=== PATIENT | male | born 1975 | race Caucasian/White ===

== ENCOUNTER 2018-07-16 13:37 | Emergency (ER) | END 2018-07-16 16:35 | disposition home or self-care (01) ==

== ENCOUNTER 2019-03-27 19:58 | Observation (INO) | payer BC ==
[~2019-03-27] VITALS: Ht 167.6 cm; Wt 84.0 kg
[~2019-03-27 19:58] MED LIST: ACET500C5 PO; CEPH-443 PO; IBUP-1542 PO; SULF1TAB31 PO
[2019-03-27] MEDS ORDERED: SODIUM CHLORIDE 0.9% 1L BAG IV* STA (21:38)
[2019-03-27] MEDS ORDERED: ENOXAPARIN 100 MG/ML SYG SC SCH (22:30)
[2019-03-27] MEDS ORDERED: ENOXAPARIN 80 MG/0.8 ML SYG SC SCH (22:35)
[2019-03-27] MEDS ORDERED: ACETAMINOPHEN 325 MG TAB PO PRN (23:30)
[2019-03-27] MEDS ORDERED: ONDANSETRON 4 MG INJ IV PRN (23:30)
[2019-03-28] MEDS ORDERED: DOCUSATE SODIUM 100 MG CAP PO PRN (00:30)
[2019-03-28] MEDS ORDERED: ONDANSETRON 4 MG INJ IV PRN (00:30)
[2019-03-28] MEDS ORDERED: IOHEXOL 300MG/ML 150 ML BTL ONE ×2 (00:30→10:15)
[2019-03-28] MEDS ORDERED: BISACODYL (EC) 5 MG TAB PO PRN (00:30)
[2019-03-28] MEDS ORDERED: SOD CHLORIDE 0.9% 100 ML ONE ×2 (00:30→10:15)
[2019-03-28] MEDS ORDERED: ACETAMINOPHEN 325 MG TAB PO PRN (00:30)
[2019-03-28] MEDS ORDERED: morphine 2 MG INJ IV PRN (00:30)
[2019-03-28] MEDS ORDERED: NACL 0.9% 3 ML SYG IV SCH (00:30)
[2019-03-28] MEDS ORDERED: HYDROCODONE/APAP (5/325) TAB PO PRN (00:30)
--- NOTE | 2019-03-28 00:30 | ERD ---
ER Documentation Chief Complaint Chief Complaint [id number],allie hands swelling & pain HPI Is a 43-year-old male comes in bilateral hand swelling and pain after he injected earlier today. He said he woke up with his arm her arm was swollen especially his right arm. Denies fevers chills nausea vomiting. Denies any other current complaints. Denies any chest pain. Denies any shortness of breath. ROS All systems reviewed and are negative except as per history of present illness. Medications Home Meds Discontinued Scripts Cephalexin* (Keflex*) 500 Mg Capsule, 500 MG PO QID for 7 Days, CAP Prov:LACIE CORDOBAC 07/16/18 Sulfamethoxazole/Trimethoprim* (Bactrim Ds* Tablet) 1 Each Tablet, 1 TAB PO BID for 7 Days, #14 TAB Prov:LACIE CORDOBAC 07/16/18 Acetaminophen* (Tylophen*) 500 Mg Capsule, 1 CAP PO Q6H PRN for PAIN AND OR ELEVATED TEMP, #30 CAP Prov:LACIE CORDOBA PA-C 07/16/18 Ibuprofen* (Motrin*) 600 Mg Tab, 600 MG PO Q6H PRN for PAIN AND OR ELEVATED TEMP, #30 TAB Prov:SUZANNE REAGAN 02/13/16 Allergies Allergies: Coded Allergies: No Known Allergy (Unverified , 03/27/19) PMhx/Soc Medical and Surgical Hx: pt denies Surgical Hx History of Surgery: No Anesthesia Reaction: No Hx Neurological Disorder: No Hx Respiratory Disorders: No Hx Cardiac Disorders: No Hx Psychiatric Problems: No Hx Miscellaneous Medical Probl: Yes (hep c ) Hx Alcohol Use: No Hx Substance Use: Yes (last used IV meth in am ) Hx Tobacco Use: Yes (1pack/day) Smoking Status: Current every day smoker Physical Exam Vitals Vital Signs Date Temp Pulse Resp B/P (MAP) Pulse Ox O2 O2 Flow FiO2 Time Delivery Rate 03/28/19 71 18 145/93 100 Room Air 00:25 (110) 03/27/19 99.0 85 18 131/79 96 20:09 (96) Physical Exam Const: No acute distress Head: Atraumatic Eyes: Normal Conjunctiva ENT: Normal External Ears, Nose and Mouth. Neck: Full range of motion. No meningismus. Resp: Clear to auscultation bilaterally Cardio: Regular rate and rhythm, no murmurs Abd: Soft, non tender, non distended. Normal bowel sounds Skin: No petechiae or rashes Back: No midline or flank tenderness Ext: No cyanosis, or edema Neur: Awake and alert Psych: Normal Mood and Affect Result Diagram: 03/27/19222603/27/192226 Results 24 hrs Laboratory Tests Test 03/27/19 22:27 03/27/19 22:31 03/27/19 23:27 White Blood Count 8.6 10^3/ul Red Blood Count 4.73 10^6/ul Hemoglobin 13.2 g/dl Hematocrit 41.3 % Mean Corpuscular Volume 87.3 fl Mean Corpuscular Hemoglobin 27.9 pg Mean Corpuscular 32.0 g/dl Hemoglobin Concent Red Cell Distribution Width 15.3 % Platelet Count 309 10^3/UL Mean Platelet Volume 8.7 fl Immature Granulocytes % 0.200 % Neutrophils % 66.8 % Lymphocytes % 23.3 % Monocytes % 7.6 % Eosinophils % 1.5 % Basophils % 0.6 % Nucleated Red Blood Cells % 0.0 /100WBC Immature Granulocytes # 0.020 10^3/ul Neutrophils # 5.7 10^3/ul Lymphocytes # 2.0 10^3/ul Monocytes # 0.7 10^3/ul Eosinophils # 0.1 10^3/ul Basophils # 0.1 10^3/ul Nucleated Red Blood Cells # 0.0 10^3/ul Prothrombin Time 12.3 Sec Prothrombin Time Ratio 1.0 INR International Normalized Ratio 0.90 Activated Partial Thromboplast 36.2 Sec Time Sodium Level 139 mmol/L Potassium Level 3.6 mmol/L Chloride Level 105 mmol/L Carbon Dioxide Level 26 mmol/L Anion Gap 8 Blood Urea Nitrogen 15 mg/dl Creatinine 0.94 mg/dl Est Glomerular Filtrat Rate mL/min > 60 mL/min Glucose Level 95 mg/dl Calcium Level 9.0 mg/dl Total Bilirubin 0.4 mg/dl Direct Bilirubin 0.00 mg/dl Indirect Bilirubin 0.4 mg/dl Aspartate Amino Transf (AST/SGOT) 23 IU/L Alanine 20 IU/L Aminotransferase (ALT/SGPT) Alkaline Phosphatase 97 IU/L Troponin I < 0.012 ng/ml Total Protein 7.6 g/dl Albumin 4.0 g/dl Globulin 3.60 g/dl Albumin/Globulin Ratio 1.11 POC Venous Lactate 1.1 mmol/L Lactic Acid Level 1.1 mmol/L Current Medications Medications Dose Sig/Germán Start Time Status Last (Trade) Ordered Route PRN Stop Time Admin Dose Reason Admin Sodium 2,450 ml BOLUS OVER 2 03/27/19 DC 03/27/19 Chloride HOURS STAT 21:38 23:14 (NS) IV* 03/27/19 21:40 Enoxaparin 80 mg Q12 SC 03/27/19 DC Sodium 22:30 (Lovenox) 03/27/19 22:35 Enoxaparin 80 mg Q12 SC 03/27/19 03/27/19 Sodium 22:35 22:43 (Lovenox) Ondansetron 4 mg BRIDGE ORDER 03/27/19 DC HCl (Zofran PRN IV 23:30 Inj) NAUSEA/VOMITI 03/28/19 00:14 NG 650 mg ER BRIDGE 03/27/19 DC Acetaminophen PRN PO 23:30 (Tylenol .MILD PAIN 03/28/19 00:14 Tab) 1-3 OR TEMP IV Flush 3 ml PER 03/28/19 (NS 3 ml) PROTOCOL IV 00:30 Ondansetron 4 mg Q6H PRN 03/28/19 HCl (Zofran IV 00:30 Inj) NAUSEA/VOMITI NG 650 mg Q6H PRN 03/28/19 Acetaminophen PO .PAIN 1-3 00:30 (Tylenol OR TEMP Tab) 1 tab Q6H PRN 03/28/19 Acetaminophen PO .MOD PAIN 00:30 / 4-6 Hydrocodone Bitart ([place] (5/325)) Morphine 2 mg Q4H PRN 03/28/19 Sulfate IV .SEVERE 00:30 (morphine) PAIN 7-10 Docusate 100 mg Q12H PRN 03/28/19 Sodium PO 00:30 (Colace) .CONSTIPATION Bisacodyl 5 mg DAILY PRN 03/28/19 (Dulcolax) PO 00:30 .CONSTIPATION Procedures/MDM Medical decision m[age]-year-old male with right upper extremity DVT and likely cellulitic component. At this point patient be admitted he is been given Lovenox. Dr. Lopez made aware. Departure Diagnosis: Primary Impression: DVT of upper extremity (deep vein thrombosis) Affected thrombotic vein of extremity: unspecified vein of extremity Chronicity: unspecified Laterality: unspecified laterality Qualified Codes: I82.629 - Acute embolism and thrombosis of deep veins of unspecified upper extremity Condition: Stable SUZANNE REAGAN Mar 28, 2019 00:30
[2019-03-28 02:03] VITALS: BP 132/72; PULSE 84; RESP 18
[2019-03-28 02:13] VITALS: Ht 167.6 cm; Wt 84.0 kg
[2019-03-28] MEDS ORDERED: VANCOMYCIN IV PER PHARMACY XX SCH (07:00)
--- NOTE | 2019-03-28 07:03 | HP ---
Date/Time of Note Date/Time of Note DATE: 03/28/19 TIME: 06:49 Assessment/Plan VTE Prophylaxis Pharmacological prophylaxis: LMWH Lines/Catheters IV [facility] Saline Lock Assessment/Plan Hospital Course This is a 43-year-old male being admitted to the [facility] floor for: #1 DVT of the right upper extremity: Likely secondary to history of IV drug use. Ultrasound Doppler shows: Small right upper arm cephalic vein, not compressible, consistent with thrombosis. Lovenox 1 mg/kg every 12 hours. Will consult case management to see which medication patient will qualify for as an outpatient based on insurance. #2 suspect bilateral upper extremity cellulitis: Patient does have swelling and redness noted of the bilateral hands. ED physician did report that this is likely cellulitic in nature. However given his IV drug use I did request a CT scan of the right upper extremity. Based on my examination I also felt it would be necessary to order a left upper extremity CT to evaluate for underlying abscess as well. #3 illicit drug use: Patient reports history of IV heroin use 1 week ago. He also reported marijuana and cigarettes. However the nurse reports that he admitted to methamphetamine cocaine as well. We will check a urine drug screen. PRN Ativan for withdrawal symptoms. Encourage cessation. #4 borderline obesity: We will check hemoglobin A 1C, lipid panel, TSH #5 DVT GI prophylaxis: Lovenox, no GI prophylaxis indicated Further treatment strategy will be implemented as per the clinical course Result Diagram: 03/27/19222603/27/192226 Results 24hrs Laboratory Tests Test 03/27/19 22:27 03/27/19 22:31 03/27/19 23:27 03/28/19 01:51 White Blood Count 8.6 # Red Blood Count 4.73 Hemoglobin 13.2 L Hematocrit 41.3 L Mean Corpuscular 87.3 Volume Mean Corpuscular 27.9 L Hemoglobin Mean Corpuscular 32.0 Hemoglobin Concent Red Cell 15.3 H Distribution Width Platelet Count 309 Mean Platelet Volume 8.7 # Immature 0.200 Granulocytes % Neutrophils % 66.8 Lymphocytes % 23.3 Monocytes % 7.6 Eosinophils % 1.5 Basophils % 0.6 Nucleated Red Blood 0.0 Cells % Immature 0.020 Granulocytes # Neutrophils # 5.7 Lymphocytes # 2.0 Monocytes # 0.7 Eosinophils # 0.1 Basophils # 0.1 Nucleated Red Blood 0.0 Cells # Prothrombin Time 12.3 Prothrombin Time 1.0 Ratio INR International 0.90 Normalized Ratio Activated 36.2 H Partial Thromboplast Time Sodium Level 139 Potassium Level 3.6 Chloride Level 105 Carbon Dioxide Level 26 Anion Gap 8 Blood Urea Nitrogen 15 Creatinine 0.94 Est Glomerular > 60 Filtrat Rate mL/min Glucose Level 95 Calcium Level 9.0 Total Bilirubin 0.4 Direct Bilirubin 0.00 Indirect Bilirubin 0.4 Aspartate Amino 23 Transf (AST/SGOT) Alanine 20 Aminotransferase (AL T/SGPT) Alkaline Phosphatase 97 Troponin I < 0.012 Total Protein 7.6 Albumin 4.0 Globulin 3.60 H Albumin/Globulin 1.11 Ratio POC Venous Lactate 1.1 Lactic Acid Level 1.1 1.7 HPI/ROS Admit Date/Time Admit Date/Time Mar 27, 2019 at 23:11 Hx of Present Illness Chief complaint: Bilateral arm swelling and pain This is a 43-year-old male with a past medical history of IV drug use who presented to the emergency department complaining of bilateral arm swelling and pain since yesterday. Patient is a poor historian. He states that he last injected with heroine in his left arm. He has noticed swelling over his bilateral arms mono most noticeably on his hands. He was evaluated in the emergency department and had an ultrasound performed which did show a DVT of the right upper extremity. Given his history of IV drug use a stat CT of the right upper extremity has been ordered. Upon my examination of the patient at the bedside he does appear to have swelling of the bilateral hands. He denies any fevers. There does not appear to be any induration or abscess noted on gross examination. He reports that he last used heroin 1 week ago. The patient's nurse did report that he stated that he uses heroin, cocaine and meth, he did not report this to me. Allergies: NKDA Medications: Suboxone ROS Const: As per HPI Eyes : No pain discharge or redness or change in visual acuity ENT: No pain, sore throat, congestion, congestion, dysphagia or discharge Respiratory: No shortness of breath, cough, sputum, wheezing, or pleuritic pain Cardiovascular: No chest pain, palpitation, PND, or edema GI : no change in appetite, abdominal pain, nausea, vomiting, diarrhea, con stipation, or change in the color his stool Genitourinary: No dysuria, hematuria, flank pain , discharge or CVA tenderness Musculoskeletal: No joint pain, back pain, neck pain, restricted range of motion in neck or joints Skin: Per HPI Neuro: No headache, dizziness, syncope, seizure, focal weakness Endocrine: No polyuria, polydipsia, temperature intolerance Psych: No hallucination, depression, anxiety or suicidal ideation PMH/Family/Social Past Medical History Medical History: no pertinent history Medications Current Medications Enoxaparin Sodium (Lovenox) 80 mg Q12 SC Last administered on 03/27/19at 22:43; Admin Dose 80 MG; Start 03/27/19 at 22:35 IV Flush (NS 3 ml) 3 ml PER PROTOCOL IV ; Start 03/28/19 at 00:30 Ondansetron HCl (Zofran Inj) 4 mg Q6H PRN IV NAUSEA/VOMITING; Start 03/28/19 at 00:30 Acetaminophen (Tylenol Tab) 650 mg Q6H PRN PO .PAIN 1-3 OR TEMP; Start 03/28/19 at 00:30 Acetaminophen/ Hydrocodone Bitart ([place] (5/325)) 1 tab Q6H PRN PO .MOD PAIN 4- 6; Start 03/28/19 at 00:30 Morphine Sulfate (morphine) 2 mg Q4H PRN IV .SEVERE PAIN 7-10; Start 03/28/19 at 00:30 Docusate Sodium (Colace) 100 mg Q12H PRN PO .CONSTIPATION; Start 03/28/19 at 00:30 Bisacodyl (Dulcolax) 5 mg DAILY PRN PO .CONSTIPATION; Start 03/28/19 at 00:30 Vancomycin HCl (Vanco Iv Per Pharmacy) VANCOMYCIN PER PHARMACY PER PROTOCOL XX ; Start 03/28/19 at 07:00; Status UNV Coded Allergies: No Known Allergy (Unverified , 03/27/19) Past Surgical History Past Surgical Hx: no surgical history Family History Significant Family History: no pertinent family hx Social History History of IV drug use with heroin, meth Smoking Status: Current every day smoker Drug Use: cocaine, marijuana Exam/Review of Systems Vital Signs Vitals Vital Signs Date Temp Pulse Resp B/P (MAP) Pulse Ox O2 O2 Flow FiO2 Time Delivery Rate 03/28/19 98.6 84 18 132/72 99 Room Air 02:03 (92) Intake and Output 03/27/19 03/27/19 03/28/19 1515:00 23:00 07:00 IntakeIntake Total 2450 ml BalanceBalance 2450 ml Exam Exam General: Patient is currently lying in bed in no acute distress HEENT: Atraumatic, normocephalic. The pupils are equal, round and reactive. Extraocular motor are intact Neck: Supple with full range of motion. No rigidity or meningismus Chest: Nontender Lungs: Clear to auscultation bilaterally no crackles rales or wheezing Heart: Normal S1-S2, Regular rhythm and rate. No murmur, S3, or S4 Abdomen: Soft , nontender, nondistended , bowel sounds are present. No guarding no rebound tenderness , No masses or organomegaly. No costovertebral temporal angle mass Extremities: Normal to inspection, no edema no cyanosis Skin: Bilateral dorsal surface of the hands showing erythema and redness and swelling, no areas of induration or abscess grossly appreciated. Multiple tattoos throughout the body of the bilateral upper and lower extremities Neurologic: Normal mental status, speech normal, cranial nerves II through XII are intact, motor and sensory are intact, IKE VASQUES Mar 28, 2019 06:59
[2019-03-28] MEDS ORDERED: LORAZEPAM 2 MG INJ IV PRN (07:30)
[2019-03-28] MEDS ORDERED: VANCOMYCIN HCL 1.5 GM in SOD CHLORIDE 0.9% 250 ML IVPB ONE (08:00)
[2019-03-28 08:02] VITALS: BP 145/81; PULSE 65; RESP 18
--- NOTE | 2019-03-28 15:58 | DS ---
Date/Time of Note Date/Time of Note DATE: 03/28/19 TIME: 15:55 Discharge Summary Admission/Discharge Info Admit Date/Time Mar 27, 2019 at 23:11 Discharge Date/Time Mar 28, 2019 at 13:00 Discharge Diagnosis R upper arm cephalic vein thrombosis Patient Condition: Fair Consults None Procedures None Hx of Present Illness Chief complaint: Bilateral arm swelling and pain This is a 43-year-old male with a past medical history of IV drug use who presented to the emergency department complaining of bilateral arm swelling and pain since yesterday. Patient is a poor historian. He states that he last injected with heroine in his left arm. He has noticed swelling over his bi lateral arms mono most noticeably on his hands. He was evaluated in the emergency department and had an ultrasound performed which did show a DVT of the right upper extremity. Given his history of IV drug use a stat CT of the right upper extremity has been ordered. Upon my examination of the patient at the bedside he does appear to have swelling of the bilateral hands. He denies any fevers. There does not appear to be any induration or abscess noted on gross examination. He reports that he last used heroin 1 week ago. The patient's nurse did report that he stated that he uses heroin, cocaine and meth, he did not report this to me. Allergies: NKDA Medications: Suboxone Hospital Course The patient was started on subQ enoxaparin for DVT. At the case coordinatorforest manager I arranged to have Eliquis delivered to the bedside. However before I could examine the patient he LEFT AMA to go smoke. But according to the nurse he did take the bottle of Eliquis with him. Home Meds Discontinued Scripts Cephalexin* (Keflex*) 500 Mg Capsule, 500 MG PO QID for 7 Days, CAP Prov:LACIE CORDOBA PA-C 07/16/18 Sulfamethoxazole/Trimethoprim* (Bactrim Ds* Tablet) 1 Each Tablet, 1 TAB PO BID for 7 Days, #14 TAB Prov:LACIE CORDOBA PA-C 07/16/18 Acetaminophen* (Tylophen*) 500 Mg Capsule, 1 CAP PO Q6H PRN for PAIN AND OR ELEVATED TEMP, #30 CAP Prov:LACIE CORDOBA PA-C 07/16/18 Ibuprofen* (Motrin*) 600 Mg Tab, 600 MG PO Q6H PRN for PAIN AND OR ELEVATED TEMP, #30 TAB Prov:SUZANNE REAGAN 02/13/16 Primary Care Provider [facility] Time spent on discharge: > 30 minutes Pending Labs Laboratory Tests Test 03/27/19 22:27 03/27/19 22:31 03/27/19 23:27 03/28/19 01:51 White Blood 8.6 Count 10^3/ul (4.8-10 .8) Red Blood 4.73 Count 10^6/ul (4.70-6 .10) Hemoglobin 13.2 g/dl (14.0-18.0 ) Hematocrit 41.3 % (42.0-52.0) Mean 87.3 Corpuscular fl (82.0-101.0) Volume Mean 27.9 Corpuscular pg (29.0-33.0) Hemoglobin Mean 32.0 Corpuscular g/dl (32.0-37.0 Hemoglobin Conc ) ent Red Cell 15.3 Distribution % (11.5-14.5) Width Platelet Count 309 10^3/UL (140-41 5) Mean Platelet 8.7 Volume fl (7.4-10.4) Immature 0.200 Granulocytes % % (0.001-0.429) Neutrophils % 66.8 % (39.0-77.0) Lymphocytes % 23.3 % (15.0-51.0) Monocytes % 7.6 % (0.0-11.0) Eosinophils % 1.5 % (0.0-7.0) Basophils % 0.6 % (0.0-2.0) Nucleated Red 0.0 Blood Cells % /100WBC (0.0-0. 0) Immature 0.020 Granulocytes # 10^3/ul (0.0-0. 031) Neutrophils # 5.7 10^3/ul (1.6-7. 5) Lymphocytes # 2.0 10^3/ul (0.8-2. 9) Monocytes # 0.7 10^3/ul (0.3-0. 9) Eosinophils # 0.1 10^3/ul (0.0-0. 5) Basophils # 0.1 10^3/ul (0.0-0. 1) Nucleated Red 0.0 Blood Cells # 10^3/ul (0.0-0. 0) Prothrombin 12.3 Time Sec (11.9-14.9) Prothrombin 1.0 Time Ratio INR 0.90 International Normalized Rati o Activated 36.2 Partial Thrombo Sec (23.0-35.0) plast Time Sodium Level 139 mmol/L (135-144 ) Potassium 3.6 Level mmol/L (3.5-5.1 ) Chloride Level 105 mmol/L (97-110) Carbon Dioxide 26 Level mmol/L (21-31) Anion Gap 8 (5-13) Blood Urea 15 mg/dl (7-20) Nitrogen Creatinine 0.94 mg/dl (0.61-1.2 4) Est Glomerular > 60 Filtrat mL/min (>60) Rate mL/min Glucose Level 95 mg/dl (70-220) Calcium Level 9.0 mg/dl (8.4-10.2 ) Total 0.4 Bilirubin mg/dl (0.2-1.3) Direct 0.00 Bilirubin mg/dl (0.00-0.2 0) Indirect 0.4 Bilirubin mg/dl (0-1.1) Aspartate Amino 23 IU/L (15-46) Transf (AST/SGO T) Alanine 20 IU/L (13-69) Aminotransferas e (ALT/SGPT) Alkaline 97 Phosphatase IU/L (42-121) Troponin I < 0.012 ng/ml (0.000-0. 120) Total Protein 7.6 g/dl (6.1-8.1) Albumin 4.0 g/dl (3.3-4.9) Globulin 3.60 g/dl (1.3-3.2) Albumin/Globuli 1.11 n Ratio POC Venous 1.1 Lactate mmol/L (0.5-2. 0) Lactic Acid 1.1 1.7 Level mmol/L (0.5-2. mmol/L (0.5-2. 0) 0) MINH KELLY MD Mar 28, 2019 15:58
[2019-03-28] MEDS ORDERED: VANCOMYCIN HCL 1.25 GM in SOD CHLORIDE 0.9% 250 ML IVPB SCH (20:00)
== END 2019-03-28 13:00 | disposition left against medical advice (07) ==
LOC: E/R 19:58 → MS1 23:11
PROVIDERS: ADMIT Family Medicine; ATTEND Internal Medicine
DX: I82.611 Acute embolism and thrombosis of superficial veins of right upper extremity (principal); F15.10 Other stimulant abuse, uncomplicated; F17.210 Nicotine dependence, cigarettes, uncomplicated
CPT/HCPCS: 71045; 73200; 80053; 83605; 84484; 85025; 85610; 85730; 86305; 87040; 93005; 93970; 96372; 99285; J1650; J2270; J3370; J7030; J7050; Q9967; Z7500; Z7610; G0378

== ENCOUNTER → 2019-06-02 | Emergency (ER) | payer BC ==
[~2019-06-02] VITALS: Ht 170.2 cm; Wt 80.9 kg
[~2019-06-02] MED LIST changes: -ACET500C5 PO; +LIDOCAINE 2%/EPI MPF (SDV) 20 ML VIAL INJ STA
[2019-06-02 05:43] VITALS: BP 142/92; PULSE 93; RESP 18; Ht 170.2 cm; Wt 80.9 kg
--- NOTE | 2019-06-02 10:34 | ERD ---
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 He states he has been intermittently taking his friend's amoxicillin and Keflex but has not been very consistent with this. He states the swelling and pain started to become worse yesterday. He denies any fevers. No numbness or tingling of his hand. He states he last used IV heroin 2 days ago. Tetanus is up-to-date. Of note, patient was seen here in October for DVT of the right upper extremity. He was given a 2-week course of Eliquis which she completed but is worried about another DVT and is requesting an ultrasound. Denies any shortness of breath or chest pain. ROS All systems reviewed and are negative except as per history of present illness. Medications Home Meds Active Scripts Cephalexin* (Keflex*) 500 Mg Capsule, 500 MG PO QID for 5 Days, CAP Prov:DISHIGRIKIANZEPYUR N PA-C 06/02/19 Sulfamethoxazole/Trimethoprim* (Bactrim Ds* Tablet) 1 Each Tablet, 1 TAB PO BID, #14 TAB Prov:DISHIGRIKIAN,ZEPYUR N PA-C 06/02/19 Allergies Allergies: Coded Allergies: No Known Allergy (Unverified , 03/27/19) PMhx/Soc Medical and Surgical Hx: pt denies Medical Hx, pt denies Surgical Hx History of Surgery: No Anesthesia Reaction: No Hx Neurological Disorder: No Hx Respiratory Disorders: No Hx Cardiac Disorders: No Hx Psychiatric Problems: No Hx Miscellaneous Medical Probl: Yes (Hep C, drug abuse) Hx Alcohol Use: No Hx Substance Use: Yes (heroine, 03/27/19) Hx Tobacco Use: Yes (1 pack day) Smoking Status: Current every day smoker Physical Exam Vitals Vital Signs Date Temp Pulse Resp B/P (MAP) Pulse Ox O2 O2 Flow FiO2 Time Delivery Rate 06/02/19 98.0 93 18 142/92 100 05:43 (109) Physical Exam Const: No acute distress Head: Atraumatic Eyes: Normal Conjunctiva ENT: Normal External Ears, Nose and Mouth. Neck: Full range of motion. No meningismus. Resp: Clear to auscultation bilaterally Cardio: Regular rate and rhythm, no murmurs Ext: + Approximately 5 x 6 cm tender nodule to the right upper extremity with surrounding erythema and induration. Mild fluctuance. Warm to the touch. Distally NVI. Full ROM of the shoulder, wrist and hand. Neur: Awake and alert Psych: Normal Mood and Affect Results 24 hrs Current Medications Medications Dose Sig/Germán Start Time Status Last (Trade) Ordered Route PRN Stop Time Admin Dose Reason Admin Lidocaine/ 20 ml ONCE STAT 06/02/19 DC Epinephrine INJ 06:12 (Xylocaine 06/02/19 06:15 2%/ Epi Mpf(Sdv)) Procedures/MDM PROCEDURES: Abscess Incision and Drainage was attempted by me Location: right upper extremity Anesthesia: Local 1% Lidocaine Complications: Unable to express significant amount of pus. Neurovascularly intact post procedure IMAGING: PROCEDURE: Ultrasound of the right upper extremity: CLINICAL INDICATION: Pain and swelling. Prior cephalic vein thrombus. Evaluate for DVT. TECHNIQUE: Sonographic grayscale, spectral analysis, and color-flow imaging of the right upper extremity was performed. COMPARISON: March 27, 2019. FINDINGS: INTERNAL JUGULAR THROUGH BRACHIAL VEINS: No thrombus is seen with grayscale or color-flow imaging. COMPRESSION AND PHASICITY: Present with appropriate waveforms. OTHER FINDINGS: Cephalic vein thrombus is no longer demonstrated. IMPRESSION: 1. No DVT is appreciated. MEDICAL DECISION MAKING: This is a 43-year-old IV drug user presents with an abscess to his right upper extremity. I attempted to incision and drain the abscess however there was no clear area of fluctuance and no pus was expressed. Patient was told to return in 2 days for wound recheck, he was prescribed Bactrim and Keflex to take in the interim, warm compresses were also advised. He has no fever, he is nontoxic- appearing and well-hydrated. There is no evidence of sepsis or deep space tissue infection at this time. I discussed this case my supervising doctor, Dr. Manning who agrees my assessment and plan. Records reviewed and patient was diagnosed and treated for an upper extremity DVT in March 2019. He requested upper extremity ultrasound today to rule out another DVT which was unremarkable. He has no shortness of breath or hypoxia. He has no evidence of DVT or PE at this time. PRESCRIPTIONS: Bactrim and Keflex SPECIALIST FOLLOW UP RECOMMENDED: None Smoking Cessation Therapy: Pt. was lectured for greater than 3 minutes on the health risks of continued smoking and the benefits of cessation. Departure Diagnosis: Primary Impression: Abscess Additional Impressions: IV drug user History of DVT (deep vein thrombosis) Condition: Stable Patient Instructions: Abscess, Antiobiotic Treatment Only Referrals: [facility] (PCP) Additional Instructions: Apply warm compresses for the next 2 days, and return in 48 hours for wound recheck as you may need the abscess drained at that time. Take the antibiotics and prescribing you for the next few days. Return here for sooner any numbness, tingling, worsening pain, fevers or any other concerns. CAIO SHERIFF PA-C Jun 02, 2019 10:33
== END | disposition home or self-care (01) ==
LOC: FTE 05:40
DX: L02.413 Cutaneous abscess of right upper limb (principal); F19.10 Other psychoactive substance abuse, uncomplicated; F17.210 Nicotine dependence, cigarettes, uncomplicated; Z86.718 Personal history of other venous thrombosis and embolism
CPT/HCPCS: 93971

== ENCOUNTER 2019-06-03 01:33 | Emergency (ER) | payer BC ==
[~2019-06-03] VITALS: Ht 172.7 cm; Wt 81.8 kg
[~2019-06-03 01:33] MED LIST changes: -LIDOCAINE 2%/EPI MPF (SDV) 20 ML VIAL INJ STA
[2019-06-03 01:37] VITALS: Ht 172.7 cm; Wt 81.8 kg
--- NOTE | 2019-06-03 04:27 | ERD ---
ER Documentation Chief Complaint Chief Complaint RUQ ab pain just now HPI The patient is a 43-year-old male, presenting to the ER because he feels as if he has something coming out from the right upper quadrant just before he came to the ER. He is heavily sedated and need to be aroused to ask questions. He denies fever, chills, neck pain, chest pain, dyspnea, vomiting, dizzy, diarrhea. He has history of substance abuse Past medical/surgical history: None ROS All systems reviewed and are negative except as per history of present illness. Medications Home Meds Active Scripts Ibuprofen* (Motrin*) 600 Mg Tab, 600 MG PO Q6H PRN for PAIN AND OR ELEVATED TEMP, #20 TAB Prov:BALJINDER BRADSHAW MD 06/03/19 Cephalexin* (Keflex*) 500 Mg Capsule, 500 MG PO QID for 5 Days, CAP Prov:DISHIGRIKIANZEPYUR N PA-C 06/02/19 Sulfamethoxazole/Trimethoprim* (Bactrim Ds* Tablet) 1 Each Tablet, 1 TAB PO BID, #14 TAB Prov:DISHIGRIKIANZEPYUR N PA-C 06/02/19 Allergies Allergies: Coded Allergies: No Known Allergy (Unverified , 03/27/19) PMhx/Soc History of Surgery: No Anesthesia Reaction: No Hx Neurological Disorder: No Hx Respiratory Disorders: No Hx Cardiac Disorders: No Hx Psychiatric Problems: No Hx Miscellaneous Medical Probl: Yes (Hep C, drug abuse) Hx Alcohol Use: No Hx Substance Use: Yes (heroine, 03/27/19) Hx Tobacco Use: Yes (1 pack day) Physical Exam Vitals Vital Signs Date Temp Pulse Resp B/P (MAP) Pulse Ox O2 O2 Flow FiO2 Time Delivery Rate 06/03/19 98.2 75 20 128/84 100 Room Air 04:45 (99) 06/03/19 98.0 72 20 144/96 98 01:37 (112) Physical Exam Const: No acute distress. Head: Atraumatic. Eyes: Normal Conjunctiva. ENT: Normal External Ears, Nose and Mouth. Neck: Full range of motion. No meningismus. Resp: Clear to auscultation bilaterally. Cardio: Regular rate and rhythm. Abd: Soft, non distended, normal bowel sounds, no right upper quadrant discomfort, no rigidity/rebound/epigastric/CVA tenderness Skin: No petechiae or rashes. Back: No midline or flank tenderness. Ext: No cyanosis, or edema. Neur: Awake and alert. No focal deficit Psych: Normal Mood and Affect. Results 24 hrs Laboratory Tests Test 06/03/19 05:16 Bedside Urine pH (LAB) 5.5 Bedside Urine Protein (LAB) Trace Bedside Urine Glucose (UA) Negative Bedside Urine Ketones (LAB) Negative Bedside Urine Blood Negative Bedside Urine Nitrite (LAB) Negative Bedside Urine Leukocyte Esterase (L Negative Current Medications Medications Dose Sig/Germán Start Time Status Last (Trade) Ordered Route PRN Stop Time Admin Dose Reason Admin Ketorolac 60 mg ONCE STAT 06/03/19 DC 06/03/19 Tromethamine IM 05:17 05:27 (Toradol) 06/03/19 05:18 Procedures/[place] [id number] Radiology Main Line: [phone] DIAGNOSTIC IMAGING REPORT Patient: BOWEN RUELAS : 1975 Age: 43 Sex: M MR #: [id number] DOS: 06/03/19 0439 Ordering MD: BALJINDER BRADSHAW MD Location: E/R Room/Bed: PROCEDURE: US Abdomen. CLINICAL INDICATION: Abdominal Pain TECHNIQUE: Multiple real-time images were acquired of the patient's abdomen and retroperitoneum utilizing a high resolution transducer. COMPARISON: None FINDINGS: The liver is of normal size and contour with no mass or intrahepatic ductal dilatation. There is fatty infiltration. Portal and hepatic vein are patent on color flow Doppler imaging. The common bile duct measures millimeter in transverse diameter. there is sludge in the lumen of the gallbladder. No gallstones are identified. Gallbladder wall is not thickened and no abnormal pericholecystic fluid collection is seen. No sonographic Sanchez's sign was elicited during this exam. There is no ascites. The pancreas is not well visualized. The right kidney measures 12.4 cm in length. No hydronephrosis, calculus or masses seen. There is no evidence of abdominal aortic aneurysm or caval thrombosis. IMPRESSION: No evidence of cholelithiasis, cholecystitis or biliary obstruction. Sludge in the lumen of the gallbladder. Poor visualization of pancreas. .Bowen Clay MD, MD Date Time Electronically viewed and signed by .Bowen Clay MD, MD on 06/03/2019 05:37 .A/ CC: BALJINDER BRADSHAW MD [id number] MEDICAL MAKING DECISION: The patient is a 43-year-old male, presenting with acut e abdominal pain, treated with Toradol 60 mg IM for pain with good response, is stable for outpatient follow-up The differential diagnoses considered include but are not limited to cholelithiasis, cholecystitis, choledocholithiasis, cholangitis, pancreatitis, hepatitis, gastritis, peptic ulcer disease, gastric ulcer, appendicitis, cystitis, diverticulitis, partial small bowel obstruction. Departure Diagnosis: Primary Impression: Abdominal pain Condition: Good Comments He was discharged with Motrin The patient's blood pressure was elevated (>120/80) but appears stable without evidence of hypertension emergency or urgency. The patient was counseled about the risks of hypertension and urged to pursue outpatient monitoring and therapy within a week with their primary care physician. I discussed the findings with the patient. I advised the patient to follow-up with the primary physician in about 1-2 days, sooner if needed and return if any concern. Disclaimer: Inadvertent spelling and grammatical errors are likely due to EHR/dictation software use and do not reflect on the overall quality of patient care. Also, please note that the electronic time recorded on this note does not necessarily reflect the actual time of the patient encounter. BALJINDER BRADSHAW MD Jun 03, 2019 04:27
[2019-06-03] MEDS ORDERED: KETOROLAC 60 MG INJ IM STA (05:17)
[2019-06-03 06:20] VITALS: BP 122/76; PULSE 69; RESP 20
== END 2019-06-03 06:34 | disposition home or self-care (01) ==
LOC: E/R 01:33
DX: R10.11 Right upper quadrant pain (principal); Z87.891 Personal history of nicotine dependence
CPT/HCPCS: 76705; 81003; 96372; 99285; J1885

== ENCOUNTER 2019-08-16 00:10 | Emergency (ER) | payer BC ==
[~2019-08-16] VITALS: Ht 172.7 cm; Wt 80.1 kg
[~2019-08-16 00:10] MED LIST changes: +ACET325T33 PO; +AZIT250T PO; +CLIN300C10 PO
[2019-08-16 00:14] VITALS: Ht 172.7 cm; Wt 80.1 kg
[2019-08-16] MEDS ORDERED: ACETAMINOPHEN 500 MG TAB PO STA (00:36)
[2019-08-16] MEDS ORDERED: DEXAMETHASONE 10 MG/ML 1 ML INJ PO ONE (01:00)
[2019-08-16 01:21] VITALS: BP 156/95; PULSE 85; RESP 20
== END 2019-08-16 01:22 | disposition home or self-care (01) ==
LOC: FTE 00:10
DX: J40 Bronchitis, not specified as acute or chronic (principal); Z87.891 Personal history of nicotine dependence
CPT/HCPCS: 99283; J1100; Z7610